=== PATIENT | male | born 1990 | race Caucasian/White ===

== ENCOUNTER 2017-09-12 17:53 | Emergency (ER) | payer OTHER ==
[~2017-09-12] VITALS: Ht 195.6 cm; Wt 160.0 kg
[2017-09-12] MEDS ORDERED: SODIUM CHLORIDE 0.9% 1,000ML IVBOLUS ONE ×2 (18:30→21:00)
[2017-09-12] MEDS ORDERED: PLEASE ENTER HEIGHT AND WEIGHT MC SCH (18:30)
[2017-09-12] MEDS ORDERED: FAMOTIDINE 20 MG/2 ML IVP ONE (18:30)
[2017-09-12] MEDS ORDERED: KETOROLAC 30 MG/1 ML IVPush ONE (18:30)
[2017-09-12] MEDS ORDERED: PLEASE ENTER ALLERGIES MC SCH (18:30)
[2017-09-12] MEDS ORDERED: ONDANSETRON ODT 8 MG PO ONE (18:30)
[2017-09-12 18:33] LABS: MEAN CORPUSCULAR HEMOGLOBIN 28.3 pg (27.5-34.5); MEAN CORPUSCULAR HGB CONC 35.2 g/dL (33.2-36.2); MEAN CORPUSCULAR VOLUME 80.2 fL (81-97); MEAN PLATELET VOLUME 9.6 fL (7.4-10.4); PLATELET COUNT 205 x10^3/uL (130-400); RED BLOOD COUNT 5.92 x10^6/uL (4.38-5.82); RED CELL DISTRIBUTION WIDTH 14.2 % (9.4-14.8)
[2017-09-12 18:40] LABS: MD YES
[2017-09-12] MEDS ORDERED: FAMOTIDINE 20 MG/2 ML ONE (18:40)
[2017-09-12] MEDS ORDERED: ONDANSETRON ODT 4 MG ONE (18:40)
[2017-09-12] MEDS ORDERED: KETOROLAC 30 MG/1 ML ONE (18:40)
[2017-09-12 19:07] LABS: BAND#(MANUAL) 0.21 x10^3/uL; BANDS%(MANUAL) 2 % (0-7); EOS#(MANUAL) 0.21 x10^3/uL (0.0-0.4); EOS% (MANUAL) 2 % (1-7); LYMPH#(MANUAL) 1.35 x10^3/uL (1-3.4); LYMPHS% (MANUAL) 13 % (22-44); MONOS#(MANUAL) 0.73 x10^3/uL (0.3-2.7); MONOS% (MANUAL) 7 % (2-9); SEGS% (MANUAL) 76 % (42-75)
[2017-09-12 19:08] LABS: <PLATELET ESTIMATE> ADEQUATE; <PLT MORPHOLOGY> NORMAL PLT MORPH; <RBC MORPHOLOGY> NORMAL
[2017-09-12 19:55] LABS: ALBUMIN 3.2 g/dL (3.4-5.0)
[2017-09-12 19:58] LABS: BILIRUBIN,TOTAL 0.9 mg/dL (0.2-1.0); CREATININE 0.95 mg/dL (0.7-1.3)
[2017-09-12 20:20] LABS: ANION GAP 8 mmol/L (5-15); CHLORIDE 105 mmol/L (98-107)
[2017-09-12 20:26] LABS: MICROSCOPIC AUTO
[2017-09-12 20:27] LABS: CULTURE INDICATED? NO
[2017-09-12 20:35] LABS: ALKALINE PHOSPHATASE 95 U/L (45-117)
[2017-09-12 20:37] LABS: CALCIUM 8.3 mg/dL (8.5-10.1)
[2017-09-12 20:38] LABS: ALANINE AMINOTRANSFERASE 42 U/L (12-78)
[2017-09-12] MEDS ORDERED: INSULIN REGULAR 100 UNITS/ML, 3ML VIAL IVPush ONE (21:00)
[2017-09-12 21:11] LABS: PH, VENOUS 7.365 pH (7.320-7.420)
[2017-09-12 21:12] LABS: O2 FLOW ROOM AIR L/min
[2017-09-12] MEDS ORDERED: MORPHINE SULFATE 4 MG/ML, 1ML ONE ×2 (21:18→22:31)
[2017-09-12] MEDS ORDERED: INSULIN REGULAR 100 UNITS/ML, 3ML VIAL ONE (21:19)
[2017-09-12 21:38] LABS: ACETONE, SERUM Moderate(40mg/dL) mg/dL (Negative)
[2017-09-12] MEDS: MORPHINE SULFATE 4 MG/ML, 1ML IVPush PRN ×2 (22:00→22:47)
[2017-09-12] MEDS ORDERED: OMNIPAQUE 350 MG/ML, 150 ML BOTTLE ONE (22:34)
[2017-09-12 22:46] VITALS: BP 122/86
== END 2017-09-13 00:44 | disposition home or self-care (01) ==
LOC: ED 21:32
DX: K85.90 Acute pancreatitis without necrosis or infection, unspecified (principal); E78.1 Pure hyperglyceridemia; R73.9 Hyperglycemia, unspecified; E87.5 Hyperkalemia
CPT/HCPCS: 36415; 74177; 80047; 80053; 81001; 82010; 82803; 83690; 84478; 85025; 93005; 96361; 96365; 96375; 96376; 99285; J1885; J7030; Q0162; Q9967; S0028

== ENCOUNTER 2019-07-21 12:57 | Inpatient (IN) | payer OTHER ==
[~2019-07-21] VITALS: Ht 198.1 cm; Wt 172.1 kg
--- NOTE | 2019-07-21 13:30 | NUR ---
separator tender note: Pt ambulatory to room from lobby with steady gait.
[2019-07-21] MEDS ORDERED: KETOROLAC 30 MG/1 ML ONE (13:54)
[2019-07-21] MEDS ORDERED: ONDANSETRON 2MG/ML, 2ML ONE (13:54)
[2019-07-21] MEDS ORDERED: FAMOTIDINE 20 MG/2 ML ONE (13:54)
[2019-07-21] MEDS ORDERED: KETOROLAC 30 MG/1 ML IVPush ONE (14:00)
[2019-07-21] MEDS ORDERED: SODIUM CHLORIDE 0.9% 1,000ML IVBOLUS ONE ×2 (14:00→16:00)
[2019-07-21] MEDS ORDERED: FAMOTIDINE 20 MG/2 ML IV ONE (14:00)
[2019-07-21] MEDS ORDERED: ONDANSETRON 2MG/ML, 2ML IVPush ONE (14:00)
[2019-07-21] MEDS ORDERED: SODIUM CHLORIDE FLUSH 10ML SYR IVF ONE ×2 (14:00→16:00)
--- NOTE | 2019-07-21 14:01 | NUR ---
IV, MEDS, LABS - US DELAY
[2019-07-21 14:16] LABS: MEAN CORPUSCULAR HEMOGLOBIN 27.4 pg (27.5-34.5); MEAN CORPUSCULAR HGB CONC 34.7 g/dL (33.2-36.2); PLATELET COUNT 229 x10^3/uL (130-400); RED BLOOD COUNT 5.93 x10^6/uL (4.38-5.82); RED CELL DISTRIBUTION WIDTH 14.8 % (9.4-14.8)
--- NOTE | 2019-07-21 14:53 | NUR ---
Yong salomon in EDM - 07/21/19 at 1454 by EAN PT REQUESTING NS BOLUS AND TO BE ADMITTED. PT ASSURED CONCERNS WILL BE BROUGHT UP TO .
--- NOTE | 2019-07-21 14:54 | NUR ---
PT EXPRESSES THAT MEDICATIONS HAVE NOT HELPED. MD MADE AWARE. NO NEW ORDERS RECIEVED.
[2019-07-21 14:57] LABS: ALBUMIN 3.2 g/dL (3.4-5.0); ANION GAP 11 mmol/L (5-15); CALCIUM 7.3 mg/dL (8.5-10.1); CHLORIDE 100 mmol/L (98-107); CREATININE 0.91 mg/dL (0.7-1.3)
[2019-07-21 15:05] LABS: ALKALINE PHOSPHATASE 94 U/L (45-117); BILIRUBIN,TOTAL 1.4 mg/dL (0.2-1.0)
[2019-07-21 15:10] LABS: MD YES
[2019-07-21 15:32] LABS: <RBC MORPHOLOGY> NORMAL; BAND#(MANUAL) 0.18 x10^3/uL; BANDS%(MANUAL) 2 % (0-7); EOS#(MANUAL) 0.18 x10^3/uL (0.0-0.4); EOS% (MANUAL) 2 % (1-7); LYMPH#(MANUAL) 0.88 x10^3/uL (1-3.4); LYMPHS% (MANUAL) 10 % (22-44); MONOS#(MANUAL) 0.18 x10^3/uL (0.3-2.7); MONOS% (MANUAL) 2 % (2-9); SEG#(MANUAL) 7.39 x10^3/uL (1.8-6.8); SEGS% (MANUAL) 84 % (42-75)
[2019-07-21 15:33] LABS: <PLATELET ESTIMATE> ADEQUATE; <PLT MORPHOLOGY> NORMAL PLT MORPH
[2019-07-21 15:35] LABS: ALANINE AMINOTRANSFERASE 81 U/L (12-78)
[2019-07-21] MEDS ORDERED: MORPHINE SULFATE 4 MG/ML, 1ML ONE (15:49)
[2019-07-21] MEDS ORDERED: morphine SULFATE 10 MG/ML, 1ML IVPush ONE (16:00)
--- NOTE | 2019-07-21 16:01 | NUR ---
pt medicated per order.
[2019-07-21 16:17] LABS: TRIGLYCERIDES 942 mg/dL (50-200)
[2019-07-21 16:19] LABS: HDL CHOLESTEROL (DIRECT) 25 mg/dL (40-60)
[2019-07-21] MEDS ORDERED: INSULIN REGULAR 100 UNITS/ML, 3ML VIAL IVPush ONE (16:30)
[2019-07-21] MEDS ORDERED: INSULIN LISPRO 100 UNITS/ML, PEN SQ-INSULIN SCH (16:30)
[2019-07-21] MEDS ORDERED: GABAPENTIN 300 MG CAPSULE PO PRN (16:30)
[2019-07-21] MEDS ORDERED: GLUCAGON 1 MG IM PRN (16:30)
[2019-07-21] MEDS ORDERED: ONDANSETRON 2MG/ML, 2ML IVPush PRN (16:30)
[2019-07-21] MEDS ORDERED: ONDANSETRON ODT 4 MG PO PRN (16:30)
[2019-07-21] MEDS ORDERED: hydrALAzine 20 MG/ML, 1ML IVPush PRN (16:30)
[2019-07-21] MEDS ORDERED: BACLOFEN 10 MG TABLET PO PRN (16:30)
[2019-07-21] MEDS ORDERED: DEXTROSE 50%, 50ML SYRINGE IVPush PRN (16:30)
[2019-07-21] MEDS ORDERED: morphine SULFATE 10 MG/ML, 1ML IVPush PRN (16:30)
[2019-07-21] MEDS ORDERED: DEXTROSE 4 GM TAB.CHEW PO PRN (16:30)
[2019-07-21 16:32] LABS: CHOL/HDL RATIO 17.9; CHOLESTEROL, TOTAL 447 mg/dL (140-239); HDL CHOL % 6 % (26-37)
[2019-07-21] MEDS ORDERED: METF500T17 PO (16:36)
[2019-07-21] MEDS ORDERED: INSU100C SQ-INSULIN (16:36)
[2019-07-21] MEDS ORDERED: GEMF600T8 PO (16:36)
[2019-07-21] MEDS ORDERED: INSU100I34 SQ (16:36)
[2019-07-21 18:06] VITALS: BP 146/86
[2019-07-21] MEDS: LACTATED RINGERS 1,000 ML IV SCH ×2 (18:18→23:07)
[2019-07-21] MEDS: INSULIN LISPRO 100 UNITS/ML, PEN SQ-INSULIN SCH ×2 (18:20→22:23)
[2019-07-21 19:40] VITALS: BP 100/61
[2019-07-21 20:40] VITALS: BP 135/76
[2019-07-21] MEDS ORDERED: INSULIN GLARGINE 100 UNITS/ML, PEN SQ-INSULIN SCH (21:00)
[2019-07-21] MEDS: SODIUM CHLORIDE FLUSH 10ML SYR IVF SCH (21:00)
[2019-07-21 21:27] LABS: MICROSCOPIC AUTO
[2019-07-21 21:29] LABS: CULTURE INDICATED? NO
[2019-07-21 21:31] LABS: HCT (SEDRATE) 46.8 % (39.2-51.8)
[2019-07-21] MEDS: ACETAMINOPHEN 325 MG TABLET PO PRN (22:21)
[2019-07-21] MEDS: OXYcodone IR 5MG TABLET PO PRN (22:32)
[2019-07-21] MEDS ORDERED: CEFTRIAXONE PMX 1GM/50ML 50 ML IV SCH (23:30)
[2019-07-22 00:31] LABS: BASOPHILS # (AUTO) 0.02 x10^3/uL (0-0.1); BASOPHILS % (AUTO) 0 % (0-1); EOSINOPHILS # (AUTO) 0.04 x10^3/uL (0-0.4); EOSINOPHILS % (AUTO) 0 % (1-7); LYMPHOCYTES # (AUTO) 0.72 x10^3/uL (1-3.4); LYMPHOCYTES % (AUTO) 7 % (22-44); MD NO; MEAN CORPUSCULAR HEMOGLOBIN 26.5 pg (27.5-34.5); MEAN CORPUSCULAR VOLUME 78.2 fL (81-97); MEAN PLATELET VOLUME 9.6 fL (7.4-10.4); MONOCYTES # (AUTO) 0.34 x10^3/uL (0.2-0.8); MONOCYTES % (AUTO) 4 % (2-9); NEUTROPHILS % (AUTO) 89 % (42-75); PLATELET COUNT 157 x10^3/uL (130-400); RED BLOOD COUNT 5.78 x10^6/uL (4.38-5.82); RED CELL DISTRIBUTION WIDTH 14.9 % (9.4-14.8)
[2019-07-22] MEDS: KETOROLAC 30 MG/1 ML IV PRN ×2 (00:31→19:25)
[2019-07-22 00:43] LABS: ANION GAP 10 mmol/L (5-15); CALCIUM 7.5 mg/dL (8.5-10.1); CHLORIDE 103 mmol/L (98-107); CREATININE 0.97 mg/dL (0.7-1.3)
[2019-07-22 00:51] LABS: ALANINE AMINOTRANSFERASE 24 U/L (12-78); ALKALINE PHOSPHATASE 79 U/L (45-117); BILIRUBIN,TOTAL 0.9 mg/dL (0.2-1.0); TOTAL PROTEIN 6.8 g/dL (6.4-8.2); TRIGLYCERIDES 1792 mg/dL (50-200)
[2019-07-22 01:29] VITALS: BP 117/59
[2019-07-22 02:08] LABS: BASOPHILS # (AUTO) 0.01 x10^3/uL (0-0.1); BASOPHILS % (AUTO) 0 % (0-1); EOSINOPHILS # (AUTO) 0.01 x10^3/uL (0-0.4); EOSINOPHILS % (AUTO) 0 % (1-7); LYMPHOCYTES # (AUTO) 0.72 x10^3/uL (1-3.4); LYMPHOCYTES % (AUTO) 7 % (22-44); MD NO; MEAN CORPUSCULAR HEMOGLOBIN 26.5 pg (27.5-34.5); MEAN CORPUSCULAR VOLUME 77.8 fL (81-97); MEAN PLATELET VOLUME 9.7 fL (7.4-10.4); MONOCYTES # (AUTO) 0.32 x10^3/uL (0.2-0.8); MONOCYTES % (AUTO) 3 % (2-9); NEUTROPHILS # (AUTO) 9.11 x10^3/uL (1.8-6.8); NEUTROPHILS % (AUTO) 90 % (42-75); PLATELET COUNT 157 x10^3/uL (130-400); RED BLOOD COUNT 5.77 x10^6/uL (4.38-5.82); RED CELL DISTRIBUTION WIDTH 14.8 % (9.4-14.8)
[2019-07-22 02:18] LABS: ALBUMIN 2.9 g/dL (3.4-5.0); ANION GAP 10 mmol/L (5-15); CALCIUM 7.5 mg/dL (8.5-10.1); CHLORIDE 104 mmol/L (98-107); CREATININE 0.88 mg/dL (0.7-1.3)
[2019-07-22 02:31] LABS: ALANINE AMINOTRANSFERASE 26 U/L (12-78); ALKALINE PHOSPHATASE 79 U/L (45-117); BILIRUBIN,TOTAL 0.9 mg/dL (0.2-1.0); TOTAL PROTEIN 6.9 g/dL (6.4-8.2); TRIGLYCERIDES 1720 mg/dL (50-200)
[2019-07-22 02:39] LABS: D-DIMER 1.03 ug/mlFEU (0.00-0.52); INTERNATIONAL NORMALIZED RATIO 1.05 (0.93-1.1); PROTHROMBIN TIME 11.1 Seconds (9.6-11.5)
[2019-07-22] MEDS: OXYcodone IR 5MG TABLET PO PRN (04:08)
[2019-07-22] MEDS: LACTATED RINGERS 1,000 ML IV SCH ×4 (04:13→22:20)
[2019-07-22] MEDS ORDERED: OMNIPAQUE 350 MG/ML, 100ML BOTTLE ONE (05:40)
[2019-07-22] MEDS ORDERED: ALBUMIN HUMAN 5%, 25G/500ML IV ONE (08:00)
[2019-07-22] MEDS ORDERED: CALCIUM GLUCONATE 4.6 MEQ/10 ML IV ONE (08:00)
[2019-07-22] MEDS: FENOFIBRATE 145 MG TABLET PO SCH (08:01)
[2019-07-22] MEDS: INSULIN LISPRO 100 UNITS/ML, PEN SQ-INSULIN SCH ×4 (08:06→20:28)
[2019-07-22] MEDS: SODIUM CHLORIDE FLUSH 10ML SYR IVF SCH ×2 (08:07→20:29)
[2019-07-22] MEDS: INSULIN GLARGINE 100 UNITS/ML, PEN SQ-INSULIN SCH ×2 (08:07→20:28)
[2019-07-22 17:19] VITALS: BP 124/79
[2019-07-22 18:39] VITALS: BP 118/73
[2019-07-23 00:21] VITALS: BP 115/61
[2019-07-23] MEDS: LACTATED RINGERS 1,000 ML IV SCH ×3 (03:20→23:27)
[2019-07-23 03:56] LABS: BASOPHILS # (AUTO) 0.03 x10^3/uL (0-0.1); BASOPHILS % (AUTO) 0 % (0-1); EOSINOPHILS # (AUTO) 0.09 x10^3/uL (0-0.4); EOSINOPHILS % (AUTO) 1 % (1-7); LYMPHOCYTES # (AUTO) 0.93 x10^3/uL (1-3.4); LYMPHOCYTES % (AUTO) 12 % (22-44); MD NO; MEAN CORPUSCULAR HEMOGLOBIN 25.7 pg (27.5-34.5); MEAN CORPUSCULAR HGB CONC 32.5 g/dL (33.2-36.2); MEAN CORPUSCULAR VOLUME 79.1 fL (81-97); MEAN PLATELET VOLUME 9.9 fL (7.4-10.4); MONOCYTES % (AUTO) 8 % (2-9); NEUTROPHILS # (AUTO) 6.34 x10^3/uL (1.8-6.8); NEUTROPHILS % (AUTO) 79 % (42-75); PLATELET COUNT 118 x10^3/uL (130-400); RED BLOOD COUNT 5.46 x10^6/uL (4.38-5.82); RED CELL DISTRIBUTION WIDTH 15.2 % (9.4-14.8)
[2019-07-23 04:01] LABS: ALANINE AMINOTRANSFERASE 9 U/L (12-78); ALBUMIN 2.9 g/dL (3.4-5.0); ANION GAP 7 mmol/L (5-15); CALCIUM 7.6 mg/dL (8.5-10.1); CALCIUM 7.7 mg/dL (8.5-10.1); CHLORIDE 108 mmol/L (98-107)
[2019-07-23 04:03] LABS: ALKALINE PHOSPHATASE 32 U/L (45-117); CREATININE 0.75 mg/dL (0.7-1.3); TOTAL PROTEIN 5.2 g/dL (6.4-8.2)
[2019-07-23 04:06] LABS: CREATININE 0.74 mg/dL (0.7-1.3)
[2019-07-23] MEDS: KETOROLAC 30 MG/1 ML IV PRN ×2 (04:53→20:39)
[2019-07-23 06:24] VITALS: BP 123/76
[2019-07-23] MEDS: INSULIN LISPRO 100 UNITS/ML, PEN SQ-INSULIN SCH ×4 (08:02→20:41)
[2019-07-23] MEDS: SODIUM CHLORIDE FLUSH 10ML SYR IVF SCH ×2 (08:03→20:41)
[2019-07-23] MEDS: INSULIN GLARGINE 100 UNITS/ML, PEN SQ-INSULIN SCH ×2 (08:03→20:40)
[2019-07-23] MEDS: FENOFIBRATE 145 MG TABLET PO SCH (08:03)
[2019-07-23] MEDS ORDERED: POTASSIUM PHOSPHATE 44 MEQ in SODIUM CHLORIDE 0.9% 500 ML IV ONE (10:00)
[2019-07-23] MEDS ORDERED: MAGNESIUM SULFATE PMX 2GM/50ML 50 ML IV ONE (10:00)
[2019-07-23 12:40] VITALS: BP 119/78
[2019-07-23] MEDS ORDERED: BISACODYL 10 MG SUPP PR PRN (17:00)
[2019-07-23 18:52] VITALS: BP 119/73
[2019-07-23] MEDS ORDERED: DIPHENHYDRAMINE 25 MG CAPSULE PO PRN (20:00)
[2019-07-23] MEDS: ACETAMINOPHEN 325 MG TABLET PO PRN (20:40)
[2019-07-24 02:05] VITALS: BP 138/84
[2019-07-24] MEDS: LACTATED RINGERS 1,000 ML IV SCH ×4 (04:41→21:34)
[2019-07-24 05:30] LABS: BASOPHILS # (AUTO) 0.01 x10^3/uL (0-0.1); BASOPHILS % (AUTO) 0 % (0-1); EOSINOPHILS # (AUTO) 0.13 x10^3/uL (0-0.4); EOSINOPHILS % (AUTO) 2 % (1-7); LYMPHOCYTES # (AUTO) 0.79 x10^3/uL (1-3.4); LYMPHOCYTES % (AUTO) 11 % (22-44); MD NO; MEAN CORPUSCULAR HGB CONC 32.9 g/dL (33.2-36.2); MEAN CORPUSCULAR VOLUME 79.2 fL (81-97); MEAN PLATELET VOLUME 10.1 fL (7.4-10.4); MONOCYTES % (AUTO) 8 % (2-9); NEUTROPHILS # (AUTO) 5.67 x10^3/uL (1.8-6.8); NEUTROPHILS % (AUTO) 79 % (42-75); PLATELET COUNT 121 x10^3/uL (130-400); RED CELL DISTRIBUTION WIDTH 15.6 % (9.4-14.8)
[2019-07-24 05:42] LABS: CHLORIDE 107 mmol/L (98-107)
[2019-07-24 05:50] LABS: ALANINE AMINOTRANSFERASE 10 U/L (12-78); ALBUMIN 2.7 g/dL (3.4-5.0); ALKALINE PHOSPHATASE 54 U/L (45-117); ANION GAP 10 mmol/L (5-15); CALCIUM 8.3 mg/dL (8.5-10.1); CREATININE 0.69 mg/dL (0.7-1.3); TRIGLYCERIDES 514 mg/dL (50-200)
[2019-07-24 07:35] VITALS: BP 150/86
[2019-07-24] MEDS: INSULIN LISPRO 100 UNITS/ML, PEN SQ-INSULIN SCH ×4 (07:46→20:54)
[2019-07-24] MEDS: KETOROLAC 30 MG/1 ML IV PRN ×2 (07:46→20:53)
[2019-07-24] MEDS ORDERED: POTASSIUM PHOSPHATE 44 MEQ in SODIUM CHLORIDE 0.9% 500 ML IV ONE (08:00)
[2019-07-24] MEDS: INSULIN GLARGINE 100 UNITS/ML, PEN SQ-INSULIN SCH ×2 (08:16→20:54)
[2019-07-24] MEDS: FENOFIBRATE 145 MG TABLET PO SCH (08:16)
[2019-07-24] MEDS: SODIUM CHLORIDE FLUSH 10ML SYR IVF SCH ×2 (08:17→20:53)
[2019-07-24 12:53] VITALS: BP 131/83
[2019-07-24 20:25] VITALS: BP 125/73
[2019-07-24] MEDS: DIPHENHYDRAMINE 25 MG CAPSULE PO PRN (20:53)
[2019-07-24] MEDS: SIMVASTATIN 5 MG TABLET PO SCH (20:53)
[2019-07-25 00:09] VITALS: BP 124/81
[2019-07-25] MEDS: LACTATED RINGERS 1,000 ML IV SCH ×2 (02:49→07:54)
[2019-07-25 05:33] LABS: ALBUMIN 2.5 g/dL (3.4-5.0); ANION GAP 10 mmol/L (5-15); CALCIUM 8.5 mg/dL (8.5-10.1); CHLORIDE 109 mmol/L (98-107)
[2019-07-25 05:35] LABS: BASOPHILS % (AUTO) 0 % (0-1); EOSINOPHILS # (AUTO) 0.14 x10^3/uL (0-0.4); EOSINOPHILS % (AUTO) 2 % (1-7); LYMPHOCYTES % (AUTO) 10 % (22-44); MD NO; MEAN CORPUSCULAR HGB CONC 32.9 g/dL (33.2-36.2); MEAN CORPUSCULAR VOLUME 79.1 fL (81-97); MEAN PLATELET VOLUME 9.8 fL (7.4-10.4); MONOCYTES # (AUTO) 0.69 x10^3/uL (0.2-0.8); MONOCYTES % (AUTO) 8 % (2-9); NEUTROPHILS # (AUTO) 7.39 x10^3/uL (1.8-6.8); NEUTROPHILS % (AUTO) 81 % (42-75); PLATELET COUNT 166 x10^3/uL (130-400); RED BLOOD COUNT 5.09 x10^6/uL (4.38-5.82); RED CELL DISTRIBUTION WIDTH 15.4 % (9.4-14.8)
[2019-07-25 05:37] LABS: ALANINE AMINOTRANSFERASE 11 U/L (12-78); ALKALINE PHOSPHATASE 69 U/L (45-117); BILIRUBIN,TOTAL 0.9 mg/dL (0.2-1.0); CREATININE 0.68 mg/dL (0.7-1.3); TOTAL PROTEIN 6.3 g/dL (6.4-8.2)
[2019-07-25 06:54] VITALS: BP 139/78
[2019-07-25] MEDS: INSULIN LISPRO 100 UNITS/ML, PEN SQ-INSULIN SCH ×4 (08:19→21:39)
[2019-07-25] MEDS: FENOFIBRATE 145 MG TABLET PO SCH (08:19)
[2019-07-25] MEDS: KETOROLAC 30 MG/1 ML IV PRN ×2 (08:19→21:38)
[2019-07-25] MEDS: INSULIN GLARGINE 100 UNITS/ML, PEN SQ-INSULIN SCH ×2 (08:20→21:39)
[2019-07-25 08:23] LABS: TRIGLYCERIDES 456 mg/dL (50-200)
[2019-07-25] MEDS: SODIUM CHLORIDE FLUSH 10ML SYR IVF SCH ×2 (09:14→21:38)
[2019-07-25 12:42] VITALS: BP 153/75
[2019-07-25] MEDS ORDERED: LACTATED RINGERS 1,000 ML IV SCH (16:30)
[2019-07-25 19:23] VITALS: BP 142/81
[2019-07-25] MEDS: DIPHENHYDRAMINE 25 MG CAPSULE PO PRN (21:37)
[2019-07-25] MEDS: SIMVASTATIN 5 MG TABLET PO SCH (21:38)
[2019-07-26 00:28] VITALS: BP 142/86
[2019-07-26 05:58] LABS: BASOPHILS # (AUTO) 0.02 x10^3/uL (0-0.1); BASOPHILS % (AUTO) 0 % (0-1); EOSINOPHILS # (AUTO) 0.16 x10^3/uL (0-0.4); EOSINOPHILS % (AUTO) 2 % (1-7); LYMPHOCYTES % (AUTO) 9 % (22-44); MD NO; MEAN CORPUSCULAR HEMOGLOBIN 25.8 pg (27.5-34.5); MEAN CORPUSCULAR HGB CONC 32.5 g/dL (33.2-36.2); MEAN CORPUSCULAR VOLUME 79.3 fL (81-97); MEAN PLATELET VOLUME 9.1 fL (7.4-10.4); MONOCYTES # (AUTO) 0.79 x10^3/uL (0.2-0.8); MONOCYTES % (AUTO) 9 % (2-9); NEUTROPHILS # (AUTO) 7.39 x10^3/uL (1.8-6.8); NEUTROPHILS % (AUTO) 81 % (42-75); PLATELET COUNT 176 x10^3/uL (130-400); RED BLOOD COUNT 4.97 x10^6/uL (4.38-5.82); RED CELL DISTRIBUTION WIDTH 15.5 % (9.4-14.8)
[2019-07-26 06:07] LABS: ALANINE AMINOTRANSFERASE 14 U/L (12-78); ALBUMIN 2.4 g/dL (3.4-5.0); ANION GAP 8 mmol/L (5-15); CALCIUM 8.7 mg/dL (8.5-10.1); CHLORIDE 108 mmol/L (98-107); CREATININE 0.66 mg/dL (0.7-1.3); TRIGLYCERIDES 318 mg/dL (50-200)
[2019-07-26 06:14] LABS: ALKALINE PHOSPHATASE 77 U/L (45-117); BILIRUBIN,TOTAL 0.9 mg/dL (0.2-1.0); TOTAL PROTEIN 6.3 g/dL (6.4-8.2)
[2019-07-26 06:21] LABS: C-REACTIVE PROTEIN, QUANT > 19.00 mg/dL (0.02-0.49)
[2019-07-26 06:29] LABS: HCT (SEDRATE) 39.4 % (39.2-51.8)
[2019-07-26 07:17] VITALS: BP 144/94
[2019-07-26] MEDS: FENOFIBRATE 145 MG TABLET PO SCH (07:45)
[2019-07-26] MEDS: INSULIN GLARGINE 100 UNITS/ML, PEN SQ-INSULIN SCH ×2 (07:45→20:14)
[2019-07-26] MEDS: INSULIN LISPRO 100 UNITS/ML, PEN SQ-INSULIN SCH ×4 (07:45→20:14)
[2019-07-26] MEDS: SODIUM CHLORIDE FLUSH 10ML SYR IVF SCH ×2 (07:46→20:14)
[2019-07-26 12:07] VITALS: BP 149/83
[2019-07-26] MEDS: SIMVASTATIN 5 MG TABLET PO SCH (20:13)
[2019-07-26] MEDS: OXYcodone IR 5MG TABLET PO PRN (20:13)
[2019-07-26 20:27] VITALS: BP 142/79
[2019-07-26] MEDS: DIPHENHYDRAMINE 25 MG CAPSULE PO PRN (22:07)
[2019-07-27 04:00] VITALS: BP 132/82
[2019-07-27 06:25] LABS: ANION GAP 11 mmol/L (5-15); CALCIUM 8.3 mg/dL (8.5-10.1); CHLORIDE 105 mmol/L (98-107); CREATININE 0.62 mg/dL (0.7-1.3)
[2019-07-27 06:38] LABS: C-REACTIVE PROTEIN, QUANT > 19.00 mg/dL (0.02-0.49)
[2019-07-27 06:39] LABS: MEAN CORPUSCULAR HEMOGLOBIN 26.1 pg (27.5-34.5); MEAN CORPUSCULAR VOLUME 79.2 fL (81-97); MEAN PLATELET VOLUME 9.1 fL (7.4-10.4); PLATELET COUNT 203 x10^3/uL (130-400); RED BLOOD COUNT 4.88 x10^6/uL (4.38-5.82); RED CELL DISTRIBUTION WIDTH 15.3 % (9.4-14.8)
[2019-07-27 06:45] LABS: HCT (SEDRATE) 38.7 % (39.2-51.8)
[2019-07-27 07:28] VITALS: BP 146/74
[2019-07-27 07:50] LABS: BASOPHILS # (AUTO) 0.02 x10^3/uL (0-0.1); BASOPHILS % (AUTO) 0 % (0-1); EOSINOPHILS # (AUTO) 0.16 x10^3/uL (0-0.4); EOSINOPHILS % (AUTO) 2 % (1-7); LYMPHOCYTES # (AUTO) 0.92 x10^3/uL (1-3.4); LYMPHOCYTES % (AUTO) 9 % (22-44); MD SCAN; MONOCYTES # (AUTO) 0.78 x10^3/uL (0.2-0.8); MONOCYTES % (AUTO) 8 % (2-9); NEUTROPHILS # (AUTO) 8.04 x10^3/uL (1.8-6.8); NEUTROPHILS % (AUTO) 81 % (42-75)
[2019-07-27] MEDS: INSULIN LISPRO 100 UNITS/ML, PEN SQ-INSULIN SCH ×2 (07:59→11:26)
[2019-07-27] MEDS: SODIUM CHLORIDE FLUSH 10ML SYR IVF SCH (07:59)
[2019-07-27] MEDS: FENOFIBRATE 145 MG TABLET PO SCH (08:00)
[2019-07-27] MEDS: INSULIN GLARGINE 100 UNITS/ML, PEN SQ-INSULIN SCH (08:00)
[2019-07-27] MEDS ORDERED: SIMV5TAB14 PO (11:16)
== END 2019-07-27 13:52 | disposition home or self-care (01) | DRG 439 ==
LOC: ED 14:02 → SUATTDRO 15:58 → EDIP 16:35 → 3N 17:41 → CCU 07-22 03:57 → 4EST 07-22 17:12
PROVIDERS: ADMIT Hospitalist; ATTEND Hospitalist
PROC: 6A551Z3 Pheresis of Plasma, Multiple (ICD-10-PCS; principal; 2019-07-22)
PROC: 02HV33Z Insertion of Infusion Device into Superior Vena Cava, Percutaneous Approach (ICD-10-PCS; 2019-07-22)
PROC: B548ZZA Ultrasonography of Superior Vena Cava, Guidance (ICD-10-PCS; 2019-07-22)
DX: K85.80 Other acute pancreatitis without necrosis or infection (principal); E87.2 Acidosis; Z68.41 Body mass index [BMI] 40.0-44.9, adult; E66.9 Obesity, unspecified; K86.1 Other chronic pancreatitis; E78.1 Pure hyperglyceridemia; E83.39 Other disorders of phosphorus metabolism; E83.42 Hypomagnesemia; E83.51 Hypocalcemia; K76.0 Fatty (change of) liver, not elsewhere classified; Z79.4 Long term (current) use of insulin; Z80.42 Family history of malignant neoplasm of prostate; Z83.3 Family history of diabetes mellitus; Z87.19 Personal history of other diseases of the digestive system; E11.9 Type 2 diabetes mellitus without complications
CPT/HCPCS: 36415; 74021; 77001; 82570; 84145; 96361; 96374; 96375; 99285; J3490; 36514; 36556; 71045; 74160; 76700; 76937; 80048; 80053; 80061; 80069; 81001; 82043; 82330; 82962; 83036; 83605; 83690; 83735; 84100; 84156; 84478; 84550; 85025; 85379; 85384; 85610; 85651; 85730; 86140; 87040; 87081; C1894; G0378; J0696; J1815; J1885; J2405; P9045; Q9967; C1751; J0610; J1642; J2270; J3475; J7030; J7040; J7120; Q0163